=== PATIENT | female | born 1970 | race Caucasian/White ===

== ENCOUNTER 2018-10-25 12:54 | Emergency (ER) | payer MEDICAID, OTHER ==
[~2018-10-25] VITALS: Ht 167.6 cm; Wt 87.1 kg
[2018-10-25 13:00] VITALS: BP 130/89
--- NOTE | 2018-10-25 13:03 | NUR ---
patient ambulated to bed 4
--- NOTE | 2018-10-25 13:04 | NUR ---
48/f bib self C/O RED ITCHING RASHES ALL OVER THE BODY X1 MONTH, PT STATED POSSIBLE BUG BITE. PATIENT STATES PAIN OF 0/10 AT THIS TIME; PATIENT POSITIONED FOR COMFORT; HOB ELEVATED; BEDRAILS UP X1; BED DOWN. ER MD MADE AWARE OF PT STATUS.
--- NOTE | 2018-10-25 13:24 | NUR ---
Dr. Dickerson evaluating patient at bedside.
[2018-10-25 13:43] VITALS: BP 130/89
--- NOTE | 2018-10-25 13:43 | NUR ---
Patient discharged with v/s stable. Written and verbal after care instructions given and explained. Patient alert, oriented and verbalized understanding of instructions. Ambulatory with steady gait. All questions addressed prior to discharge. ID band removed. Patient advised to follow up with PMD. Rx of PERMETHRIN, DIPHENHYDRAMINE HCL & HYDROCORTISONE given. Patient educated on indication of medication including possible reaction and side effects. Opportunity to ask questions provided and answered.
== END 2018-10-25 13:43 | disposition home or self-care (01) ==
LOC: MED 12:54
DX: T14.8XXA Other injury of unspecified body region, initial encounter (principal); Z88.0 Allergy status to penicillin; W57.XXXA Bitten or stung by nonvenomous insect and other nonvenomous arthropods, initial encounter; Y93.E9 Activity, other interior property and clothing maintenance; Y92.009 Unspecified place in unspecified non-institutional (private) residence as the place of occurrence of the external cause; Y99.8 Other external cause status
CPT/HCPCS: 99283